=== PATIENT | male | born 1975 | race Caucasian/White ===

== ENCOUNTER 2025-01-14 12:05 | Outpatient (CLI) | payer OTHER, SELFPAY ==
--- NOTE | 2025-01-14 13:40 | P.ANES_ITS ---
Anesthesia Charges Start Date/Time Anesthesia Start Date: 01/14/25 Anesthesia Start Time: 13:08 Stop Date/Time Anesthesia Stop Date: 01/14/25 Anesthesia Stop Time: 13:53 Coding CPT Codes CPT Codes: ANES UPR LWR GI NDSC PX - 76599 ([id number]) P3 - PATIENT W/SEVERE SYS DISEASE, QK - HEALTH INFORMATION PROVIDER 2-4 CNCRNT ANES PROC, QX - WORK STATION SUPPORT SPECIALIST SVC W/ MD MED DIRECTION
--- NOTE | 2025-01-14 13:40 | W.ANESCHARGE ---
Anesthesia Charges Start Date/Time Anesthesia Start Date: 01/14/25 Anesthesia Start Time: 13:08 Stop Date/Time Anesthesia Stop Date: 01/14/25 Anesthesia Stop Time: 13:53 Coding CPT Codes CPT Codes: ANES UPR LWR GI NDSC PX - 74001 ([id number]) P3 - PATIENT W/SEVERE SYS DISEASE, QK - JAVA DEVELOPER WITH SECURITY CLEARANCE 2-4 CNCRNT ANES PROC, QX - RECEP SVC W/ MD MED DIRECTION
--- NOTE | 2025-01-14 13:57 | P.ANES_ITS ---
Anesthesia Charges Start Date/Time Anesthesia Start Date: 01/14/25 Anesthesia Start Time: 13:08 Stop Date/Time Anesthesia Stop Date: 01/14/25 Anesthesia Stop Time: 13:53 Coding CPT Codes CPT Codes: ANES UPR LWR GI NDSC PX - 66788 ([id number]) P3 - PATIENT W/SEVERE SYS DISEASE, QK - CLAY TEMPERER 2-4 CNCRNT ANES PROC, QX - INSTALLER INTERIOR ASSEMBLIES SVC W/ MD MED DIRECTION
--- NOTE | 2025-01-14 13:57 | W.ANESCHARGE ---
Anesthesia Charges Start Date/Time Anesthesia Start Date: 01/14/25 Anesthesia Start Time: 13:08 Stop Date/Time Anesthesia Stop Date: 01/14/25 Anesthesia Stop Time: 13:53 Coding CPT Codes CPT Codes: ANES UPR LWR GI NDSC PX - 39741 ([id number]) P3 - PATIENT W/SEVERE SYS DISEASE, QK - GRAIN COMBINER 2-4 CNCRNT ANES PROC, QX - BELTING CUTTER SVC W/ MD MED DIRECTION
== END 2025-01-14 12:06 | disposition home or self-care (01) ==
LOC: OP CLINIC 12:06
PROVIDERS: PCP Internal Medicine; Visit Provider Surgery
DX: Z12.11 Encounter for screening for malignant neoplasm of colon (principal); D12.0 Benign neoplasm of cecum; D12.5 Benign neoplasm of sigmoid colon; K22.70 Barrett's esophagus without dysplasia; R13.10 Dysphagia, unspecified
CPT/HCPCS: 00813; 43239; 45385; 88305; J2704; J3490

== ENCOUNTER 2025-05-01 07:09 | Outpatient (CLI) | payer BC, SELFPAY ==
--- NOTE | 2025-05-01 07:15 | CRLHL7_ITS ---
For Patients: As a result of the Century Cures Act, medical imaging exams and procedure reports are released immediately into your electronic medical record. You may view this report before your referring provider. If you have questions, please contact your health care provider. INDICATION: Vomiting, unspecified COMPARISON: none TECHNIQUE: Real time jimenes scale imaging and color Doppler analysis was performed of the right upper quadrant. FINDINGS: The liver measures 14.9 cm. Liver echotexture is diffusely increased. Normal IVC. Proximal abdominal aorta is obscured by bowel gas. The mid aorta appears normal. There is no evidence of ascites. The gallbladder is of normal size and there is no evidence of intraluminal stones or sludge. The gallbladder wall measures 1 mm in thickness. The common bile duct is of normal size and measures 5 mm in diameter at the level of the ralph hepatis. The pancreas is obscured by bowel gas. There is no evidence of a stone or hydronephrosis within the right kidney. The right kidney measures 12.0 cm in length. IMPRESSION: Severe hepatic steatosis. Normal gallbladder. Dictated by Zeferino Crowe MD @ 05/01/2025 8:51:24 AM (Electronically Signed)
== END 2025-05-01 07:10 | disposition home or self-care (01) ==
LOC: US 07:10
PROVIDERS: PCP Internal Medicine; Visit Provider Internal Medicine
DX: R11.10 Vomiting, unspecified (principal); K76.0 Fatty (change of) liver, not elsewhere classified
CPT/HCPCS: 76705